=== PATIENT | male | born 1985 | race Two or more races ===

== ENCOUNTER 2021-01-03 07:32 | Emergency (ER) | payer BC, OTHER ==
[~2021-01-03] VITALS: Ht 175.3 cm; Wt 81.6 kg
[2021-01-03 07:38] VITALS: BP 140/80
[2021-01-03] MEDS ORDERED: IBUPROFEN 600 MG TAB PO ONE (08:45)
[2021-01-03] MEDS ORDERED: METHOCARBAMOL 500 MG TAB PO ONE (08:45)
== END 2021-01-03 09:26 | disposition home or self-care (01) ==
LOC: EDBD 07:32 → ER 07:32
DX: M54.5 Low back pain (principal); V49.49XA Driver injured in collision with other motor vehicles in traffic accident, initial encounter; Y93.89 Activity, other specified; Y92.488 Other paved roadways as the place of occurrence of the external cause; Y99.8 Other external cause status
CPT/HCPCS: 72100